=== PATIENT | male | born 1930 | race Caucasian/White ===

== ENCOUNTER 2017-08-01 20:08 | Inpatient (IN) | payer BC, OTHER ==
[~2017-08-01] VITALS: Ht 172.7 cm; Wt 118.5 kg
[2017-08-01 20:56] LABS: BASOPHILS # (AUTO) 0.1 /CMM (0.0-0.2); BASOPHILS % (AUTO) 0.3 % (0.0-2.0); EOSINOPHILS % (AUTO) 0.1 % (0.0-6.0); HEMATOCRIT 43 % (39-51); HEMOGLOBIN 14.8 g/dL (13.5-17.5); LYMPHOCYTES # (AUTO) 0.2 /CMM (0.8-4.8); LYMPHOCYTES % (AUTO) 0.9 % (20.0-44.0); MEAN CORPUSCULAR HEMOGLOBIN 33 PG (26.0-33.0); MEAN CORPUSCULAR HGB CONC 34 g/dl (31.0-36.0); MEAN CORPUSCULAR VOLUME 95 fL (80-96); MONOCYTES # (AUTO) 0.2 /CMM (0.1-1.30); NEUTROPHILS # (AUTO) 19.1 /CMM (1.8-8.9); NEUTROPHILS % (AUTO) 97.7 % (43.0-81.0); PLATELET COUNT (AUTO) 127 /CMM (150-450); RDW COEFFICIENT OF VARIATION 13.5 (11.5-15.0); RED BLOOD CELL COUNT(AUTO) 4.55 MIL/uL (4.5-6.0); WHITE BLOOD COUNT (AUTO) 19.6 K/uL (4.3-11.0)
[2017-08-01 21:04] LABS: CARBON DIOXIDE 23 mmol/L (21-32); CHLORIDE 103 mmol/L (98-107); CREATININE 1.4 mg/dL (0.6-1.3); GLUCOSE 142 mg/dL (74-106); POTASSIUM 4.3 mmol/L (3.5-5.1); SODIUM SERUM 134 mmol/L (136-145); UREA NITROGEN, BLOOD 27 mg/dL (7-18)
[2017-08-01 21:07] LABS: INR 1.01 (0.87-1.13); PROTHROMBIN TIME 10.5 SECS (9.5-12.7)
[2017-08-01 21:10] LABS: ALANINE AMINOTRANSFERASE 24 U/L (12-78); ALBUMIN 3.7 g/dL (3.4-5.0); ALKALINE PHOSPHATASE 88 U/L (46-116); ASPARTATE AMINOTRANSFERASE 24 U/L (15-37); BILIRUBIN,DIRECT 0.2 mg/dL (0.0-0.2); TOTAL PROTEIN, SERUM 7.1 g/dL (6.4-8.2)
[2017-08-01 21:11] LABS: TROPONIN I 0.167 ng/mL (0.00-0.056)
--- NOTE | 2017-08-01 21:11 | NUR ---
BRAYAN PAGED, DYLON CABRERA MANAGER PROCESS
[2017-08-01] MEDS ORDERED: VANCOMYCIN 1.25 GM in IV D5W 500 ML IV ONE (21:30)
[2017-08-01] MEDS ORDERED: IV NS 0.9% 1,000 ML BAG IV ONE (21:30)
[2017-08-01] MEDS ORDERED: MEROPENEM 500 MG in IV NS 0.9% 50 ML IV ONE (21:30)
--- NOTE | 2017-08-01 21:37 | NUR ---
CALLED DR ANUP NEELY, DR DICKEY SPOKE WITH HIM REGARDING CT HEAD FINDINGS. AFTER DR NEELY REVIEWED CT IMAGES, HE STATED TO ADMIT HERE AT [facility], AND HE WILL CONSULT.
--- NOTE | 2017-08-01 21:38 | NUR ---
PAGED NATURAL REMEDY CONSULTANT PANEL, DYLON CABRERA
[2017-08-01] MEDS ORDERED: MEROPENEM 500 MG VIAL IV ONE (21:46)
[2017-08-01] MEDS ORDERED: VANCOMYCIN 1 GM VIAL ONE (21:47)
--- NOTE | 2017-08-01 21:50 | NUR ---
REPAGED DYLON CABRERA
[2017-08-01] MEDS ORDERED: IV NS 0.9% 1,000 ML IV PRN (22:09)
[2017-08-01] MEDS ORDERED: ACETAMINOPHEN 325 MG TABLET PO PRN (22:30)
[2017-08-01] MEDS ORDERED: ONDANSETRON HCL/PF 4 MG/2 ML VIAL IVP PRN (22:30)
[2017-08-01] MEDS ORDERED: ENOXAPARIN SODIUM 40 MG/0.4 ML DISP.SYRIN SQ SCH (22:30)
[2017-08-01] MEDS ORDERED: ZOLPIDEM TARTRATE 5 MG TABLET PO PRN (22:30)
[2017-08-01] MEDS ORDERED: Z GUARD REMEDY 2 OZ OINT TP PRN (22:30)
--- NOTE | 2017-08-01 22:31 | NUR ---
RN NOTES RECEIVED REPORT FROM COUNSELOR MARRIAGE AND FAMILYLAURA KISER
--- NOTE | 2017-08-01 22:35 | NUR ---
report to iman SANCHEZ all questions answered
--- NOTE | 2017-08-01 22:45 | NUR ---
RN NOTES PT ARRIVED IN THE UNIT VIA GURNEY, TOLERATED THE TRANSFER TO BED. PT IS A/OX3, ON ROOM AIR, NO S/S OF RESP DISTRESS. DENIES ANY PAIN OF THE MOMENT. CURRENTLY VPACING ON THE MONITOR, AFIB, HR 70'S. BLE SWELLING AND DISCOLORATION NOTED, PIC TAKEN AND FILED. RIGHT FOREARM 20G AND RIGHT WRIST 20G WITH NS BOLUS WITH IV NS BOLUS AND VANCO IV, BOTH IV LINES FLUSHED AND PATENT, NO S/S OF INFILTRATION/INFECTION, DRESSINGS CDI. PT IS CONTINENT AND ABLE TO USE THE URINAL WITH ASSISTANCE. BED LOW AND LOCKED, SIDERAILS UP, CALL LIGHT WITHIN REACH. WILL MONITOR CLOSELY
[2017-08-01 23:00] VITALS: BP 99/51
--- NOTE | 2017-08-01 23:30 | NUR ---
RN NOTES PER SCRIP CLERKLAURA KISRE, 2L NS BOLUS HAS BEEN STARTED IN ER. TOTAL OF 3.6L NS IS SUPPOSED TO BE ADMINISTERED PER SEPSIS PROTOCOL. REMAINING 1.6L NS BOLUS IS INITIATED HERE IN ICU.
[2017-08-02] VITALS (28 sets, daily range): BP systolic 89–148; BP diastolic 48–69
[2017-08-02 05:18] LABS: HEMATOCRIT 41 % (39-51); HEMOGLOBIN 13.8 g/dL (13.5-17.5); LYMPHOCYTES # (AUTO) 0.3 /CMM (0.8-4.8); LYMPHOCYTES % (AUTO) 1.5 % (20.0-44.0); MEAN CORPUSCULAR HEMOGLOBIN 32 PG (26.0-33.0); MEAN CORPUSCULAR HGB CONC 34 g/dl (31.0-36.0); MEAN CORPUSCULAR VOLUME 96 fL (80-96); MONOCYTES # (AUTO) 0.3 /CMM (0.1-1.30); MONOCYTES % (AUTO) 1.4 % (2.0-12.0); NEUTROPHILS # (AUTO) 22.3 /CMM (1.8-8.9); NEUTROPHILS % (AUTO) 97.1 % (43.0-81.0); PLATELET COUNT (AUTO) 108 /CMM (150-450); RDW COEFFICIENT OF VARIATION 14.6 (11.5-15.0); RED BLOOD CELL COUNT(AUTO) 4.28 MIL/uL (4.5-6.0)
[2017-08-02 05:34] LABS: ALANINE AMINOTRANSFERASE 26 U/L (12-78); ALBUMIN 3.2 g/dL (3.4-5.0); ALKALINE PHOSPHATASE 76 U/L (46-116); ASPARTATE AMINOTRANSFERASE 20 U/L (15-37); BILIRUBIN,TOTAL 1.3 mg/dL (0.2-1.0); CALCIUM, SERUM 8.2 mg/dL (8.5-10.1); CARBON DIOXIDE 20 mmol/L (21-32); CHLORIDE 106 mmol/L (98-107); CREATININE 1.5 mg/dL (0.6-1.3); GLUCOSE 152 mg/dL (74-106); MAGNESIUM 1.7 mg/dL (1.8-2.4); POTASSIUM 4.5 mmol/L (3.5-5.1); SODIUM SERUM 140 mmol/L (136-145); TOTAL PROTEIN, SERUM 6.4 g/dL (6.4-8.2); UREA NITROGEN, BLOOD 24 mg/dL (7-18)
[2017-08-02 05:38] LABS: NEUTROPHILS % (MANUAL) 81 (42-76)
[2017-08-02 05:39] LABS: BAND % (MANUAL) 14 % (0.0-5.0); LYMPHOCYTES % (MANUAL) 2 % (16-48); MONOCYTES % (MANUAL) 3 % (0-11.0)
[2017-08-02 05:47] LABS: CHOLESTEROL 93 mg/dL (<200); HDL CHOLESTEROL 61 mg/dL (40-60); LDL 30 mg/dL (0-99); TRIGLYCERIDES 46 mg/dL (30-150)
--- NOTE | 2017-08-02 07:10 | NUR ---
RN INITIAL NOTES RECEIVED PT AWAKE, A/OX4. ON ROOM AIR. NO SOB NOTED. DENIES PAIN AT THIS TIME. IV LINES IN PLACE. ON IVF: NS AT 75ML/HR. BLE ELEVATED. HEELS OFFLOADED. PT REPOSITIONED. PT COMFORTABLE. CALL LIGHT WITHIN REACH. WILL MONITOR.
[2017-08-02] MEDS ORDERED: IPRATROPIUM NEB FS 0.5 MG/2.5 ML AMPUL.NEB ONE (07:38)
[2017-08-02] MEDS ORDERED: ALBUTEROL HALF STRENGTH 1.25 MG/3 ML VIAL.NEB ONE (07:38)
[2017-08-02] MEDS: IPRATROPIUM NEB FS 0.5 MG/2.5 ML AMPUL.NEB NEB SCH ×4 (07:39→19:30)
[2017-08-02] MEDS: ALBUTEROL HALF STRENGTH 1.25 MG/3 ML VIAL.NEB NEB SCH ×4 (07:40→19:30)
--- NOTE | 2017-08-02 08:02 | NUR ---
WOUND CARE CONSULT: PT REFUSED FULL SKIN ASSESSMENT. PT NOTED TO HAVE REDNESS WITH EDEMA TO RT LOWER LEG AND HEMOSIDERIN STAINING OF BILATERAL LOWER LEGS. ALL SKIN PROTECTION MEASURES IN PLACE AND DISCUSSED WITH NURSING STAFF. WILL SEE PRN. SMALLS IN AGREEMENT WITH PLAN OF CARE. Addendum: 08/02/17 at 0804 by SHERRY WYNNE WNDNU CURRENT VENESSA SCORE IS 17.
[2017-08-02] MEDS ORDERED: FEE PK DOSING 1 MIN EA MC ONE (08:32)
[2017-08-02] MEDS ORDERED: DOXYCYCLINE 100 MG in IV D5W 100 ML IV SCH (09:00)
--- NOTE | 2017-08-02 09:00 | NUR ---
RN NOTES SEEN AND EXAMINED BY DR. MENDEZ. AWARE OF CURRENT LAB VALUES AND IMAGING STUDIES. MD DISCUSSED PLAN OF CARE WITH PT. MD ORDERED ECHO AND COREG. NOTED AND CARRIED OUT.
[2017-08-02 09:11] LABS: APPEARANCE,URINE CLEAR (CLEAR); BILIRUBIN,URINE NEGATIVE (NEGATIVE); BLOOD, URINE NEGATIVE Ery/uL (NEGATIVE); COLOR,URINE YELLOW (YELLOW); KETONES,URINE NEGATIVE (NEGATIVE); LEUKOCYTE ESTERASE ,URINE 1+ (NEGATIVE); NITRITE, URINE NEGATIVE (NEGATIVE); PROTEIN,URINE NEGATIVE (NEGATIVE); UGLUCOSE NEGATIVE (NEGATIVE); UROBILINOGEN,URINE 0.2 EU/dL (0.2)
[2017-08-02] MEDS: DOXYCYCLINE 100 MG in IV D5W 100 ML IV SCH ×2 (09:22→21:38)
[2017-08-02] MEDS: CARVEDILOL 3.125 MG TABLET PO SCH ×2 (09:22→21:44)
[2017-08-02 09:34] LABS: BACTERIA,URINE Rare /HPF (None Seen); RBC,URINE 0-2 /HPF (0-2); SQUAMOUS EPITHELIAL CELL,UR Rare /HPF (None Seen)
--- NOTE | 2017-08-02 09:40 | NUR ---
RN NOTES SEEN AND EXAMINED BY DR. MARCELA CHAPA. AWARE OF CURRENT LAB VALUES AND IMAGING STUDIES. NO ORDER MADE
--- NOTE | 2017-08-02 10:00 | NUR ---
RN NOTES SEEN AND EXAMINED BY DR. ALIZE DEWITT. AWARE OF LAB VALUES: WBC 23. AFEBRILE. ON IV ATB. PLATELET 108. MAGNESIUM 1.7, TROPONIN 0.416, DR. MENDEZ AWARE. AWAITING FOR ECHO. NO ORDER MADE AT THIS TIME. WILL MONITOR.
[2017-08-02] MEDS: Magnesium 1GM/D5W 100ML PREMIX 100 ML IV SCH ×2 (11:21→12:14)
--- NOTE | 2017-08-02 11:30 | NUR ---
RN NOTES SEEN AND EXAMINED BY KATE FONTAINE NP FOR NEURO CONSULT. AWARE OF CURRENT LABS AND IMAGING STUDIES. ORDERED KEPPRA. PENDING CT HEAD WO CONTRAST. PENDING TRANSFER TO [facility]. WILL MONITOR.
[2017-08-02] MEDS: LEVETIRACETAM (250 MG) 250 MG TABLET PO SCH ×2 (12:14→21:38)
--- NOTE | 2017-08-02 14:48 | NUR ---
RN NOTES JJ FROM [facility] CALLED. PERTINENT INFORMATION GIVEN. PT'S TRANSFER TO [facility] IN PROGRESS. WILL CALL BACK FOR UPDATES.
--- NOTE | 2017-08-02 15:15 | NUR ---
RN NOTES CT HEAD WO CONTRAST DONE. PT AWAKE, A/OX3-4. NO CHANGE IN MENTAL STATUS NOTED. DENIES HEADACHE NOR BLURRED VISION NOTED. AWAITING RESULT. WILL MONITOR
--- NOTE | 2017-08-02 18:45 | NUR ---
RN CLOSING NOTES NO SIGNIFICANT CHANGE NOTED. REMAINS A/OX4. NO CHANGE IN LOC NOTED. DENIES ANY PAIN. IV LINES IN PLACE. KEPT CLEAN AND DRY. ASSISTED IN REPOSITIONING. BLE ELEVATED. ALL NEEDS ATTENDED AND MET. CALL LIGHT WITHIN REACH. WILL ENDORSE FOR CONTINUITY OF CARE.
--- NOTE | 2017-08-02 20:00 | NUR ---
ICE CREAM DIPPER - REC'D PT. A&O X 3, CAN BECOME CONFUSED INTERMITTENTLY, NO DEFICITS NOTED. 16:00 CT RESULTS STILL PENDING. NEURO CHECKS DONE Q 1 HR. EDMUND, EQUAL INNER TUBE CUTTER & PEDAL PUSHES BILAT.,TONGUE PROTRUSION, FACE SHAPE ARE ALL SYMMET- RICAL. PT. HAS LEFT C/W PACEMAKER & IS V-PACING/100% AT 70/BPM. SBP'S ARE TEENS TO LOW 100'S. PT.IS ON ROOM AIR > 93%. LUNG SORIANO AUSC. ARE CLEAR/DIM. PT. WAS OBSERVER SWALLOWING H20 W/ORAL MEDS & DID WELL. NO GAG OR COUGH - ING NOTED. BLE'S ARE VERY EDEMATOUS W/RLE WORSE THAN LLE. PT.NEEDS ASSIST W/URINAL. PIV'S ARE PATENT TO FLUSH TO ALL PORTS. PT.DENIES PAIN. TEMPS ARE LOW GRADE IN THE 99'S. PEDAL PULSES ARE WEAK, BUT PALPABLE. PT'S FAMILY AT BS. FAMILY IS ASKING FOR CT RESULTS & WHAT IS THE STATUS UPDATE FOR TRANSFER TO [facility]. EXPLAINED TO FAMILY THAT CT RESULTS ARE STILL PENDING, BUT RN WILL FOLLOW UP & TX PROBABLY WON'T BE DONE TONIGHT, HOWEVER DIESEL ROLLER OPERATOR ARE FOLLOWING UP. CONT. POC. NO DISTRESS/DISCOMFORT NOTED.
[2017-08-02] MEDS: ATORVASTATIN 40 MG TABLET PO SCH (21:39)
[2017-08-02] MEDS: VANCOMYCIN 1.25 GM in IV D5W 500 ML IV SCH (21:44)
[2017-08-03] VITALS (24 sets, daily range): BP systolic 93–126; BP diastolic 34–73
--- NOTE | 2017-08-03 | NUR ---
WINDOW SASH INSTALLER - NO CHANGES FROM INITIAL ASSESSMENT. VSS. PT. CONTINUES TO VPACE AT 100%. DENIES ANY PAIN. NEEDS ASSIST W/URINAL. MIN.URINE OUTPUT W/ONE BOUT OF URINE INCONTINENCE. CONT.POC. NO S/S OF DISTRESS/DISCOMFORT.
--- NOTE | 2017-08-03 02:15 | NUR ---
BOX SORTER - LOTUS - TRANSPORT SVS/RN PHONED FROM [facility] AT THIS TIME & WANTED STATUS UPDATE. [facility] VERIFIED PT'S & PREVIOUS HX OF PT., SO I GAVE A FULL REPORT OR STATUS UPDATE OF PT. NO BED IS AVAILABLE AT THIS TIME, BUT PROBABILITY OF NEAR FUTURE TRANSFER WILL BE "SHORTLY ", SHE SAID. CONT. POC.
[2017-08-03 04:24] LABS: HEMATOCRIT 36 % (39-51); HEMOGLOBIN 12.5 g/dL (13.5-17.5); LYMPHOCYTES # (AUTO) 0.4 /CMM (0.8-4.8); LYMPHOCYTES % (AUTO) 2.7 % (20.0-44.0); MEAN CORPUSCULAR HEMOGLOBIN 32 PG (26.0-33.0); MEAN CORPUSCULAR HGB CONC 34 g/dl (31.0-36.0); MEAN CORPUSCULAR VOLUME 94 fL (80-96); MONOCYTES # (AUTO) 0.6 /CMM (0.1-1.30); MONOCYTES % (AUTO) 3.9 % (2.0-12.0); NEUTROPHILS % (AUTO) 93.4 % (43.0-81.0); PLATELET COUNT (AUTO) 94 /CMM (150-450); RDW COEFFICIENT OF VARIATION 14.6 (11.5-15.0); RED BLOOD CELL COUNT(AUTO) 3.87 MIL/uL (4.5-6.0)
[2017-08-03 04:41] LABS: CALCIUM, SERUM 8.3 mg/dL (8.5-10.1); CARBON DIOXIDE 22 mmol/L (21-32); CHLORIDE 103 mmol/L (98-107); CREATININE 1.4 mg/dL (0.6-1.3); GLUCOSE 131 mg/dL (74-106); PHOSPHORUS 2.4 mg/dL (2.5-4.9); POTASSIUM 4.2 mmol/L (3.5-5.1); SODIUM SERUM 134 mmol/L (136-145); UREA NITROGEN, BLOOD 24 mg/dL (7-18)
--- NOTE | 2017-08-03 06:50 | NUR ---
APPOINTMENT SCHEDULER - PT. WAS ESCORTED TO [facility] BY 2 RNS/WALKER. PT. DID WELL. OLIGURIC AND A SMALL BM NOTED. JUAN CARE GIVEN. VERBAL REPORT ENDORSED TO SUSAN SANCHEZ. CONT. POC.
--- NOTE | 2017-08-03 07:12 | NUR ---
WELD ENGINEER NOTES RECEIVED PATIENT AOX3 , NOT IN ACUTE DISTRESS ,DENIES SOB , DISCOMFORT , DIZZINESS , HEADACHE AT THIS TIME , SPO2 OF 99% VIA RA , V PACING 75 ON BEDSIDE MONITOR , NO ARM WEAKNESS , FACIAL DROOPING SPEECH IS CLEAR , IV OF R FA # 20 AND R WRIST # 22 PATENT AND INTACT SL , ALL NEEDS ATTENDED , BED ON LOW AND LOCKED POSITION , SIDE RAILS X2 , CALL LIGHT WITHIN REACH , HOB @ 35 , WILL CONTINUE TO MONITOR .
[2017-08-03] MEDS: ALBUTEROL HALF STRENGTH 1.25 MG/3 ML VIAL.NEB NEB SCH ×4 (07:49→19:30)
[2017-08-03] MEDS: IPRATROPIUM NEB FS 0.5 MG/2.5 ML AMPUL.NEB NEB SCH ×4 (07:49→19:30)
[2017-08-03] MEDS: DOXYCYCLINE 100 MG in IV D5W 100 ML IV SCH ×2 (08:06→21:02)
[2017-08-03] MEDS: CARVEDILOL 3.125 MG TABLET PO SCH ×2 (08:06→21:02)
[2017-08-03] MEDS: LEVETIRACETAM (250 MG) 250 MG TABLET PO SCH ×2 (08:06→21:02)
[2017-08-03] MEDS ORDERED: Sodium Phosphate 15 MMOL in IV D5W 250 ML IV ONE (08:30)
[2017-08-03] MEDS ORDERED: POTASSIUM PHOSPHATE MM 7.5 MMOL in IV D5W 100 ML IV SCH (09:00)
--- NOTE | 2017-08-03 09:29 | NUR ---
OPERATING ROOM MANAGER NOTES SEEN AND EVALUATED BY DR GALLARDO , DISCUSSED LABS , V/S STABLE AFEBRILE , ELECTROLYTES BEING REPLACED BY PRIMARY MD .
--- NOTE | 2017-08-03 09:50 | NUR ---
LINSEED OIL PRESS TENDER NOTES SPOKE WITH DR HERRMANN , NOTIFIED PT IS COMPLAINING OF BURNING SENSATION ON JIS IV SITE @ R WRIST , IV PATENT AND INTACT NO S/S OF INFILTRATION , PT HAS K PHOS IV IN IT , PER MD CHANGE IT TO K PHOS [id number] , PT IS ALSO CONSTIPATED , NO PRN ORDER FOR STOOL SOFTENER , PER MD START PT ON COLACE 100MG BID , ORDERS CARRIED OUT
[2017-08-03] MEDS ORDERED: K PHOS NEUTRAL 250 MG TABLET PO ONE (10:00)
[2017-08-03] MEDS: DOCUSATE SODIUM 100 MG CAPSULE PO SCH ×2 (10:16→16:46)
--- NOTE | 2017-08-03 10:39 | NUR ---
MEDICAL VAN DRIVER NOTES MEDICATION RECONCILIATION REVIEWED , NO MEDICATIONS NOTED , SPOKE WITH MED RECON NURSE TO UPDATE THE HOME MEDS ,
[2017-08-03] MEDS ORDERED: FURO40TA5 PO (11:43)
[2017-08-03] MEDS ORDERED: ATOR40TA PO (11:43)
[2017-08-03] MEDS ORDERED: POTA20TA83 PO (11:43)
[2017-08-03] MEDS ORDERED: TAMS0.4C34 PO (11:43)
--- NOTE | 2017-08-03 11:51 | NUR ---
SHRINKING MACHINE OPERATOR NOTES CALLED DR HUNTER OFFICE , SPOKE WITH BRENDA , DISCUSSED THAT PATIENT IS REQUESTING US TO FAX HIS HEAD CT SCAN RESULT TO THEIR OFFICE , BUT PER BRENDA PATENT LAST VISIT WAS 5YEARS AGO . WILL CALL DR ZACHERY RUVALCABA MD OF THE PT .
--- NOTE | 2017-08-03 11:56 | NUR ---
TABLE GAMES DEALER NOTES CALLED DR ZACHERY AHUMADA OFFICE AT [facility] , PT IS REQUESTING TO FAX HIS HEAD CT RESULT TO HIS PRIMARY MD , PT AND SIGNED THE CONSENT TO RELEASE MEDICAL INFORMATION TO HIS PRIMARY MD , @ [phone]
--- NOTE | 2017-08-03 11:59 | NUR ---
MEDICAL TRANSCRIPTION SUPERVISOR NOTES CALLED DR KATE FONTAINE , PER DR HERRMANN REQUEST FOR THE PT HEAD CT RESULT . AWAITING FOR CALL BACK
--- NOTE | 2017-08-03 12:16 | NUR ---
BOX MAKER PAPERBOARD NOTES SPOKE WITH KATE FONTAINE MODELING AND SIMULATION ANALYST , DISCUSSED HEAD CT RESULT , PER MODELING AND SIMULATION ANALYST IF THERE IS NO CHANGE TO HEAD CT SCAN RESULT PT CAN BE DOWNGRADED TO LOWER LEVEL OF CARE , PT REFUSES TO UNDER GO SURGERY PER MODELING AND SIMULATION ANALYST LOO . WILL CALL DR HERRMANN TO DISCUSSE PLAN OF CARE
--- NOTE | 2017-08-03 13:29 | NUR ---
PHYSIOTHERAPY AIDE NOTES FAXED RELEASE OF MEDICAL RECORDS TO [facility] @ [phone] MCKEON'S REQUEST .
--- NOTE | 2017-08-03 16:30 | NUR ---
HOT DIPPER NOTES SPOKE WITH DR HERRMANN , NOTIFIED PT HAS NON PRODUCTIVE COUGH , TELEPHONE ORDER OF ROBITUSSIN 5ML Q6 PRN , ORDERS CARRIED OUT
[2017-08-03] MEDS: GUAIFENESIN/D-METHORPHAN HB 5 ML UDC PO PRN (16:46)
--- NOTE | 2017-08-03 16:56 | NUR ---
CONDEMNATION ENGINEER NOTES RECEIVED A FAX FROM [facility] REGARDING CT SCAN OF THE HEAD LAST [address] MCKEON , FORWARDER RESULT TO DR MCKEON AND COPY PLACED IN THE CHART
--- NOTE | 2017-08-03 18:37 | NUR ---
FISH EGG PACKER NOTES SEEN AND EVALUATED BY DR VILLARREAL , DISCUSSED LABS , PREVIOUS HEAD CT SCAN RESULT FROM [facility] LAST [address] RESULT FROM 08/02 , NO ACTIVE BLEEDING NOTED , PER MD ORDER DIC PROFILE , LDH , BLOOD SMEAR TO BE READ BY PATHOLOGIST AND STANDING FOR 1 INUIT OF PLATELET IF PLATELETS BELOW 90 .
--- NOTE | 2017-08-03 18:43 | NUR ---
PACKING INSPECTOR NOTES SPOKE WITH MIC FROM [facility] , DISCUSSED THAT PT IS REFUSING TRANSFER AT THIS TIME , PER MIC , MEDICAL DR FROM [facility] SPOKE WITH DR HERRMANN , AND DR HERRMANN IS OK NOT TO TRANSFER PT TO [facility] PT IS STABLE AT THIS TIME AND MIGHT BE DISCHARGE TOMORROW
--- NOTE | 2017-08-03 20:00 | NUR ---
BROOM STITCHER: RECEIVED PATIENT AOX3 , NOT IN ACUTE DISTRESS ,DENIES SOB , DISCOMFORT , DIZZINESS , SPO2 OF 99% VIA RA , V PACING ON BEDSIDE MONITOR , NO ARM WEAKNESS , FACIAL DROOPING SPEECH IS CLEAR , IV OF R FA # 20 AND R WRIST # 22 PATENT AND INTACT SL , ALL NEEDS ATTENDED , BED ON LOW AND LOCKED POSITION , SIDE RAILS X2 , CALL LIGHT WITHIN REACH , HOB @ 35 , WILL CONTINUE TO MONITOR .
--- NOTE | 2017-08-03 21:22 | NUR ---
RESIDENTIAL ROOFER; ALL DUE MEDS GIVEN.
--- NOTE | 2017-08-03 21:34 | NUR ---
DRILLING FIELD PROFESSIONAL; PT TRANSFERRING TO [facility]/RN JERRY, PT IS IN STABLE CONDITION, V/S STABLE.
[2017-08-03 21:55] LABS: INR 1.06 (0.87-1.13)
[2017-08-03 21:56] LABS: D-DIMER 1.87 mg/L(FEU (0.17-0.50)
--- NOTE | 2017-08-03 23:00 | NUR ---
RN NATHAN INITIAL NOTE PT RECEIVED IN NO ACUTE DISTRESS. ON TELE WITH SR KEVINCING. RFA 20G AND RW 22G THAT ARE CLEAN DRY AND INTACT RUNNING ATB. PT HAS BLE CELLULITIS. AWAITING RESULTS ON PLT COUNT. PT IS A/O X4 ABLE TO MAKE NEEDS KNOWN. BREATHING SOUNDS ARE DIMINISHED BILATERAL BUT PT HAS WNL 02 SATURATION. COMFORT AND SAFETY MEASURES TO BE ENSURED DURING THE SHIFT.
--- NOTE | 2017-08-03 23:32 | NUR ---
RN NATHAN NOTE ORDERED 1 UNIT PLATELET PER MD ORDER SHOBHA. TYPE ANC SCREEN ORDERED STAT WELL. ORDER WAS FOR 1 UNIT IF PLATELET COUNT WAS LESS THAN 90. RESULT WAS 85.
[2017-08-03] MEDS: ATORVASTATIN 40 MG TABLET PO SCH (23:37)
[2017-08-03] MEDS: VANCOMYCIN 1.25 GM in IV D5W 500 ML IV SCH (23:38)
[2017-08-04] VITALS (9 sets, daily range): BP systolic 105–116; BP diastolic 60–66
[2017-08-04 06:53] LABS: BASOPHILS % (AUTO) 0.2 % (0.0-2.0); EOSINOPHILS % (AUTO) 0.4 % (0.0-6.0); HEMATOCRIT 35 % (39-51); LYMPHOCYTES # (AUTO) 0.5 /CMM (0.8-4.8); LYMPHOCYTES % (AUTO) 4.5 % (20.0-44.0); MEAN CORPUSCULAR HEMOGLOBIN 33 PG (26.0-33.0); MEAN CORPUSCULAR HGB CONC 35 g/dl (31.0-36.0); MEAN CORPUSCULAR VOLUME 95 fL (80-96); MONOCYTES # (AUTO) 0.7 /CMM (0.1-1.30); MONOCYTES % (AUTO) 6.3 % (2.0-12.0); NEUTROPHILS # (AUTO) 9.2 /CMM (1.8-8.9); NEUTROPHILS % (AUTO) 88.6 % (43.0-81.0); PLATELET COUNT (AUTO) 104 /CMM (150-450); RDW COEFFICIENT OF VARIATION 14.4 (11.5-15.0); RED BLOOD CELL COUNT(AUTO) 3.65 MIL/uL (4.5-6.0); WHITE BLOOD COUNT (AUTO) 10.4 K/uL (4.3-11.0)
[2017-08-04 06:56] LABS: CALCIUM, SERUM 8.3 mg/dL (8.5-10.1); CARBON DIOXIDE 26 mmol/L (21-32); CHLORIDE 102 mmol/L (98-107); CREATININE 1.2 mg/dL (0.6-1.3); GLUCOSE 122 mg/dL (74-106); MAGNESIUM 2.1 mg/dL (1.8-2.4); PHOSPHORUS 2.7 mg/dL (2.5-4.9); POTASSIUM 3.6 mmol/L (3.5-5.1); SODIUM SERUM 132 mmol/L (136-145); UREA NITROGEN, BLOOD 22 mg/dL (7-18)
--- NOTE | 2017-08-04 07:15 | NUR ---
RN INITIAL NOTES: REC'D PT AWAKE ON BED, NOT IN ANY DISTRESS, A/O X3 W/ PERIODS OF FORGETFULNESS, DENIES ANY PAIN/DISCOMFORT. PT ON ROOM AIR, SATING AT 95%. ON TELEMONITOR, JUNCTIONAL HR 75 BPM. HAS R CW PACEMAKER. HAS 2 IV ACCESS: RFA G20 AND R WRIST G22, SL, FLUSHING WELL, NO S/SX OF INFECTION/INFILTRATION NOTED. PROVIDED COMFORT & SAFETY MEASURES. BED KEPT LOW & IN LOCKED POS. CALL LIGHT PLACED W/IN REACH. WILL CONTINUE TO MONITOR AND ATTEND PT NEEDS.
[2017-08-04] MEDS: IPRATROPIUM NEB FS 0.5 MG/2.5 ML AMPUL.NEB NEB SCH ×4 (07:39→19:33)
[2017-08-04] MEDS: ALBUTEROL HALF STRENGTH 1.25 MG/3 ML VIAL.NEB NEB SCH ×4 (07:39→19:33)
[2017-08-04] MEDS: DOCUSATE SODIUM 100 MG CAPSULE PO SCH ×2 (08:40→16:33)
[2017-08-04] MEDS: CARVEDILOL 3.125 MG TABLET PO SCH ×2 (08:40→20:24)
[2017-08-04] MEDS: LEVETIRACETAM (250 MG) 250 MG TABLET PO SCH ×2 (08:42→20:23)
[2017-08-04] MEDS: DOXYCYCLINE 100 MG in IV D5W 100 ML IV SCH (08:43)
--- NOTE | 2017-08-04 09:00 | NUR ---
RN NOTES: PT SEEN & EXAMINED BY DR. MCKEON.
--- NOTE | 2017-08-04 10:30 | NUR ---
RN NOTES: PT SEEN & EXAMINED BY DR. HERRMANN W/ ORDERS MADE AND CARRIED OUT. PER MD TO GIVE LASIX 40 MG IV NOW DOSE ONLY. Addendum: 08/04/17 at 1042 by BAILEY BENITEZ RN PER DR. HERRMANN, KEEP PT UNDER [facility] STATUS.
[2017-08-04] MEDS ORDERED: FUROSEMIDE 40 MG/4 ML VIAL IV ONE (11:00)
--- NOTE | 2017-08-04 13:09 | NUR ---
RN NOTES: PT SEEN & EXAMINED BY DR. GALEANA. Addendum: 08/04/17 at 1436 by BAILEY BENITEZ RN DR. GALEANA MADE AWARE OF CURRENT HEART RHYTHM (JUNCTIONAL? / A.FIB) NOT VPACING.
[2017-08-04 13:16] LABS: BAND % (MANUAL) 8 % (0.0-5.0); EOSINOPHILS % (MANUAL) 1 % (0-4); LYMPHOCYTES % (MANUAL) 6 % (16-48); MONOCYTES % (MANUAL) 6 % (0-11.0); NEUTROPHILS % (MANUAL) 79 (42-76)
[2017-08-04] MEDS: VANCOMYCIN 1.25 GM in IV D5W 500 ML IV SCH (16:33)
--- NOTE | 2017-08-04 19:00 | NUR ---
RN CLOSING NOTES: NO ACUTE CHANGES NOTED W/IN SHIFT. PT TOLERATED ROOM AIR, NO SOB. R CW PACEMAKER KEPT IN PLACE. IV ACCESSON R HAND G22 KEPT PATENT & INTACT W/ NO S/SX OF INFECTION/INFILTRATION NOTED. KEPT WELL RESTED. NEEDS ATTENDED. BED KEPT LOW & IN LOCKED POS. CALL LIGHT PLACED W/IN REACH. ENDORSED TO PM RN FOR TOY.
--- NOTE | 2017-08-04 19:30 | NUR ---
NATHAN RN INITIAL NOTES RECEIVED PATIENT AWAKE A/OX3, ABLE TO MAKE NEEDS KNOWN. DENIES PAIN OR DISCOMFORT. DENIES SOB. ON ROOM AIR. ON TELE MONITOR SR WITH OCC VPACING. SPEECH CLEAR. NO FACIAL DROOPING NOTED. DENIES CHANGE IN VISION. SKIN WARM AND DRY TO TOUCH. NOTED WITH RIGHT LOWER LEG SWELLING+4 WITH REDNESS, WARM TO TOUCH. WITH LEFT LOWER LEG SWELLING +3. BLE ELEVATED WITH TWO PILLOWS. SIDE RAILS UP AND LOCKED. BED KEPT AT LOWEST POSITION. CALL LIGHT KEPT WITHIN EASY REACH. WILL CONTINUE TO MONITOR.
[2017-08-04] MEDS: GUAIFENESIN/D-METHORPHAN HB 5 ML UDC PO PRN (20:23)
[2017-08-04] MEDS: DOXYCYCLINE HYCLATE (100 MG) 100 MG TABLET PO SCH (20:23)
--- NOTE | 2017-08-04 22:10 | NUR ---
PATIENT REFUSED BLOOD DRAW FOR HEPARIN INDUCED AB. EXPLAINED NEED FOR BLOOD DRAW. PATIENT STILL REFUSED. TELESALES REPRESENTATIVE WILL TRY AGAIN WITH MORNING LABS.
[2017-08-05] VITALS: BP 113/58
[2017-08-05 04:00] VITALS: BP 122/61
--- NOTE | 2017-08-05 04:00 | NUR ---
PATIENT REFUSED BED BATH, REFUSED LINEN CHANGE. ONLY AGREED TO REPOSITION. EXPLAINED NEED FOR BED BATH AND LINEN CHANGE, PATIENT STILL REFUSED.
--- NOTE | 2017-08-05 06:29 | NUR ---
NATHAN RN CLOSING NOTES NO SIGNIFICANT CHANGES OVERNIGHT. ALL NEEDS ANTICIPATED AND MET. FREQUENT NEURO CHECKS, NO DEFICITS NOTED. ALERT AND ORIENTED WITH PERIODS OF CONFUSION. BILATERAL FEET KEPT ELEVATED WITH TWO PILLOWS. SIDE RAILS UP AND LOCKED. BED KEPT AT LOWEST POSITION. CALL LIGHT KEPT WITHIN EASY REACH. WILL ENDORSE CONTINUITY OF CARE TO AM NURSE.
[2017-08-05 06:41] LABS: BASOPHILS % (AUTO) 0.5 % (0.0-2.0); EOSINOPHILS # (AUTO) 0.1 /CMM (0.0-0.7); EOSINOPHILS % (AUTO) 1.3 % (0.0-6.0); HEMATOCRIT 37 % (39-51); HEMOGLOBIN 12.3 g/dL (13.5-17.5); LYMPHOCYTES # (AUTO) 0.6 /CMM (0.8-4.8); LYMPHOCYTES % (AUTO) 5.9 % (20.0-44.0); MEAN CORPUSCULAR HEMOGLOBIN 32 PG (26.0-33.0); MEAN CORPUSCULAR HGB CONC 34 g/dl (31.0-36.0); MEAN CORPUSCULAR VOLUME 95 fL (80-96); MONOCYTES # (AUTO) 0.8 /CMM (0.1-1.30); MONOCYTES % (AUTO) 8.5 % (2.0-12.0); NEUTROPHILS # (AUTO) 7.9 /CMM (1.8-8.9); NEUTROPHILS % (AUTO) 83.8 % (43.0-81.0); PLATELET COUNT (AUTO) 104 /CMM (150-450); RDW COEFFICIENT OF VARIATION 14.4 (11.5-15.0); RED BLOOD CELL COUNT(AUTO) 3.84 MIL/uL (4.5-6.0); WHITE BLOOD COUNT (AUTO) 9.4 K/uL (4.3-11.0)
[2017-08-05 06:43] LABS: CALCIUM, SERUM 8.3 mg/dL (8.5-10.1); CARBON DIOXIDE 23 mmol/L (21-32); CHLORIDE 104 mmol/L (98-107); GLUCOSE 109 mg/dL (74-106); PHOSPHORUS 3.3 mg/dL (2.5-4.9); POTASSIUM 3.7 mmol/L (3.5-5.1); SODIUM SERUM 138 mmol/L (136-145); UREA NITROGEN, BLOOD 24 mg/dL (7-18)
--- NOTE | 2017-08-05 07:00 | NUR ---
NATHAN NOTES RECEIVED PATIENT ON BED , AWAKE A/OX3, ABLE TO MAKE NEEDS KNOWN. RESPIRATION EVEN AND UNLABORED, ON RA , NO SOB NOTED , ON TELE V- PACING HR IN 70'S , SKIN WARM AND DRY TO TOUCH. RIGHT LOWER LEG SWELLING+4 WITH REDNESS, WARM TO TOUCH. WITH LEFT LOWER LEG SWELLING +3. BLE ELEVATED WITH TWO PILLOWS.CALL LIGHT WITHIN EASY REACH , SR UP x3, BED LOCKED AND IN LOWEST POSITION , WILL CONTINUE TO MONITOR CLSOELY
[2017-08-05] MEDS: ALBUTEROL HALF STRENGTH 1.25 MG/3 ML VIAL.NEB NEB SCH ×3 (07:54→15:00)
[2017-08-05] MEDS: IPRATROPIUM NEB FS 0.5 MG/2.5 ML AMPUL.NEB NEB SCH ×3 (07:54→15:00)
[2017-08-05 08:00] VITALS: BP 122/61
[2017-08-05] MEDS: DOCUSATE SODIUM 100 MG CAPSULE PO SCH (08:14)
[2017-08-05] MEDS: CARVEDILOL 3.125 MG TABLET PO SCH (08:14)
[2017-08-05] MEDS: DOXYCYCLINE HYCLATE (100 MG) 100 MG TABLET PO SCH (08:14)
[2017-08-05] MEDS: LEVETIRACETAM (250 MG) 250 MG TABLET PO SCH (08:15)
[2017-08-05] MEDS: VANCOMYCIN 1.25 GM in IV D5W 500 ML IV SCH (09:34)
[2017-08-05 12:00] VITALS: BP 114/65
--- NOTE | 2017-08-05 14:15 | NUR ---
RN NOTES PT REFUSED TO HAVE DISCHARGE SKIN PHOTO TAKE , EXPLAINED TO PT HOW IGNORANT IT IS TO TAKE DISCHARGE PHOTO , PT STILL REFUSED AND BECAME AGITATED.
[2017-08-05] MEDS ORDERED: IPRA0.2S9 NEB (14:59)
[2017-08-05] MEDS ORDERED: LEVE250T2 PO (14:59)
[2017-08-05] MEDS ORDERED: DOXY100T2 PO (14:59)
[2017-08-05] MEDS ORDERED: CARV3.122 PO (14:59)
[2017-08-05] MEDS ORDERED: DOCU-25 PO (14:59)
[2017-08-05] MEDS ORDERED: ALBU1.25 NEB (14:59)
[2017-08-05] MEDS ORDERED: GUAI5SYR PO (14:59)
--- NOTE | 2017-08-05 14:59 | NUR ---
RN NOTES DISCHARGE ORDER RECEIVED , PT EDUCATED HOW IMPORTANT IT IS TO BE COMPLIANCE WITH MEDS AND DAILY EXERCISE AND NOT TO SMOKE .STROKE EDUCATION PACKAGE GIVEN AND EXPLAINED TO PT . PT VERBALIZES UNDERSTAND . ALSO EDUCATED PT TO FOLLOW UP WITH PCP AND NEUROLOGIST IN 3 WEEK PER MD ORDER . Addendum: 08/05/17 at 1508 by HEIDE GRACIA RN PT ADVISED TO FOLLOW UP WITH PCP AND NEUROLOGIST IN 3 DAYS .
--- NOTE | 2017-08-05 15:11 | NUR ---
RN NOTES PT EDUCATED TO CALL 911 IF HE EXPERIENCES ANY SIGN AND SYMPTOM OF STOKE . PT VERBALIZES UNDERSTANDING .
--- NOTE | 2017-08-05 15:40 | NUR ---
RN NOTES PT STILL REFUSED TO HAVE DISCHARGE SKIN PHOTO TAKEN.
--- NOTE | 2017-08-05 16:00 | NUR ---
RN NOTES R HAND H/L DISCONTINUED , PT LEFT THE FLOOR TO MAIN ENTRANCE ACCOMPANIED BY STAFF MEMBERS AND VIA WHEELCHAIR IN STABLE CONDITION .
== END 2017-08-05 15:49 | disposition home or self-care (01) | DRG 871 ==
LOC: ER 20:09 → TELE1 21:34 → ICU 21:56 → TELE-TD 08-03 21:37 → MEDSG1 08-05 13:23
PROVIDERS: ADMIT Nurse Practitioner Acute Care; ATTEND Nurse Practitioner Acute Care
PROC: 30233R1 Transfusion of Nonautologous Platelets into Peripheral Vein, Percutaneous Approach (ICD-10-PCS; principal; 2017-08-03)
DX: A41.9 Sepsis, unspecified organism (principal); I21.4 Non-ST elevation (NSTEMI) myocardial infarction; N17.0 Acute kidney failure with tubular necrosis; I50.33 Acute on chronic diastolic (congestive) heart failure; I62.01 Nontraumatic acute subdural hemorrhage; J15.9 Unspecified bacterial pneumonia; D69.59 Other secondary thrombocytopenia; J18.9 Pneumonia, unspecified organism; E87.1 Hypo-osmolality and hyponatremia; I62.03 Nontraumatic chronic subdural hemorrhage; L03.115 Cellulitis of right lower limb; N39.0 Urinary tract infection, site not specified; I48.91 Unspecified atrial fibrillation; D64.9 Anemia, unspecified; Z86.73 Personal history of transient ischemic attack (TIA), and cerebral infarction without residual deficits; R65.20 Severe sepsis without septic shock; Z95.0 Presence of cardiac pacemaker; Z88.0 Allergy status to penicillin; H26.9 Unspecified cataract; Z87.891 Personal history of nicotine dependence; E86.0 Dehydration; I87.2 Venous insufficiency (chronic) (peripheral); I25.2 Old myocardial infarction; I99.8 Other disorder of circulatory system; I70.0 Atherosclerosis of aorta; I73.9 Peripheral vascular disease, unspecified; Z80.7 Family history of other malignant neoplasms of lymphoid, hematopoietic and related tissues; Z80.1 Family history of malignant neoplasm of trachea, bronchus and lung
CPT/HCPCS: 36415; 70450-TC; 71010-TC; 80048-TC; 80053-TC; 80061-TC; 80076-TC; 80202-TC; 81000-TC; 83605-TC; 83615-TC; 83735-TC; 84100-TC; 84443-TC; 84484-TC; 85025-TC; 85396; 85730-TC; 86022; 86850-TC; 87040-TC; 87081-TC; 87086-TC; 92521; 93307-TC; 97116-TC; 97530-TC; A4216; A4606; A9563; J1940; J2185; J3370; J3475; J3490; J7050; J7060; P9016-BL; P9034-BL; Z7610